=== PATIENT | male | born 1955 | race Caucasian/White ===

== ENCOUNTER 2017-03-23 18:34 | Emergency (ER) | payer OTHER ==
[~2017-03-23 18:34] MED LIST: AMOXICILLIN PO; ANTI-ITCH28 G1 TP; ASPIRIN ENTERI325 M1 PO; ATARAX PO; BACTRIM DS TABL1 TA1 PO; ELIMITE60 GM TOP; KEFLEX500 MG PO; MELOXICAM15 MG PO; ORUDIS75 M1 PO; PHENERGAN W/CO120 ML PO; PROAIR HFA8.5 GM INH; SYMBICORT 160/4.6 G1 INH; TRAMADOL HCL50 M2 PO
== END 2017-03-23 21:06 | disposition home or self-care (01) ==
LOC: CED 18:34 → CFTX 18:34
DX: H61.23 Impacted cerumen, bilateral (principal); Z76.0 Encounter for issue of repeat prescription; J44.9 Chronic obstructive pulmonary disease, unspecified; F17.210 Nicotine dependence, cigarettes, uncomplicated; Z79.899 Other long term (current) drug therapy
CPT/HCPCS: 69209; 99282; 99283